=== PATIENT | male | born 1975 | race Caucasian/White ===

== ENCOUNTER 2019-11-01 12:03 | Inpatient (IN) | payer MEDICARE, OTHER ==
[~2019-11-01] VITALS: Ht 182.9 cm; Wt 136.4 kg
[2019-11-01] VITALS (19 sets, daily range): BP systolic 95–134; BP diastolic 42–89; Ht 182.9 cm; Wt 136.4 kg
[2019-11-01] MEDS ORDERED: TEGRETOL200 MG PO (12:24)
[2019-11-01] MEDS ORDERED: CLOZARIL100 MG PO (12:24)
[2019-11-01] MEDS ORDERED: INVEGA SUS78 MG/0.5 IM (12:25)
[2019-11-01] MEDS ORDERED: LASIX80 MG PO (12:25)
[2019-11-01] MEDS ORDERED: PROZAC20 MG PO (12:25)
[2019-11-01 12:26] LABS: BASOPHILS 0.3 % (0-2); EOSINOPHILS 0.5 % (0-7); HEMATOCRIT 41.2 % (42.0-54.0); HEMOGLOBIN 14.3 g/dL (13.5-17.5); IMMATURE GRANULOCYTES 0.4 % (0-5); LYMPHOCYTES 34.7 % (15-50); MCH 31.7 pg (26.0-34.0); MCHC 34.7 g/dL (31.0-37.0); MCV 91.4 fL (80.0-100.0); MEAN PLATELET VOLUME 9.1 fL (7.4-10.4); MONOCYTES 10.5 % (2-11); NEUTROPHILS 53.6 % (40-80); RBC 4.51 10x6/uL (4.20-6.10); RDW 13.4 % (11.5-14.5); WBC 11.5 10x3/uL (4.8-10.8)
[2019-11-01] MEDS ORDERED: PRAVACHOL40 MG PO (12:26)
[2019-11-01] MEDS ORDERED: TOPROL XL25 MG PO (12:26)
[2019-11-01] MEDS ORDERED: GLUCOPHAGE1000 MG PO (12:26)
[2019-11-01] MEDS ORDERED: TIMOPTIC 0.25% O5 M1 EACH EYE (12:26)
[2019-11-01] MEDS ORDERED: LISINOPRIL20 MG PO (12:26)
[2019-11-01] MEDS ORDERED: FENOFIBRATE160 MG PO (12:27)
[2019-11-01 12:31] LABS: PLATELET COUNT 297 10x3/uL (130-400)
[2019-11-01 12:35] LABS: CALC OSMOLALITY 279 mosm/kg (275-300); CALCIUM 9.2 mg/dL (8.5-10.1); CARBON DIOXIDE 27.5 mmol/L (21.0-32.0); CHLORIDE - SERUM 99 mmol/L (98-107); CREATININE - SERUM 1.1 mg/dL (0.6-1.3); SODIUM 135 mmol/L (136-145); UREA NITROGEN 24 mg/dL (7-18); eGFR NON AFRICAN AMERICAN 78 mL/min (90-120)
[2019-11-01 12:36] LABS: GLUCOSE 199 mg/dL (74-106)
[2019-11-01 12:37] LABS: POTASSIUM - SERUM 4.5 mmol/L (3.5-5.1)
[2019-11-01 12:45] LABS: APTT 28.4 SECONDS (22.8-39.4); INR 1.04 (0.85-1.17); PROTIME 13.1 SECONDS (11.6-15.0)
[2019-11-01 12:56] LABS: ALBUMIN 3.1 g/dL (3.4-5.0); ALKALINE PHOSPHATASE 47 U/L (46-116); ALT (SGPT) 23 U/L (10-68); BILIRUBIN - TOTAL 0.29 mg/dL (0.2-1.3); CREATINE KINASE 147 UL (21-232); MAGNESIUM - SERUM 1.4 mg/dL (1.8-2.4); PROTEIN - SERUM 6.9 g/dL (6.4-8.2); THYROID STIMULATING HORMONE 1.19 uIU/mL (0.36-3.74)
[2019-11-01 12:57] LABS: CARBAMAZEPINE (TEGRETOL) 6.2 ug/mL (4.0-12.0)
[2019-11-01 12:59] LABS: TROPONIN-I 0.541 ng/mL (0.000-0.060)
--- NOTE | 2019-11-01 14:28 | NUR ---
PT WAS GIVEN 5MG OF VERSED AT 1422 FOR CARDIOVERSION. TIMEOUT WAS PERFORMED AT 1420 AND SHOCK AT 100 JOULES WAS DELIVERED AT 1424 WITHOUT SUCCESS.
--- NOTE | 2019-11-01 14:45 | NUR ---
AMIODARONE 150 MG WAS MIXED IN 50 ML NS (SEE OVERRIDE MEDICATIONS) AND ADMINISTERED FROM [id number] AT REQUEST OF ER PROVIDER.
--- NOTE | 2019-11-01 15:45 | NUR ---
TIME OUT PERFORMED FOR SECOND ATTEMPT AT CARDIOVERSION AT 1530, VERSED 5MG ADMINISTERED (SSEE EMAR) AND SHOCK AT 200 JOULES ADMINISTERED BY ER PROVIDER AT 1534 WHICH WAS AGAIN UNSUCCESSFUL, PLEASE SEE PAPER CHARTING.
--- NOTE | 2019-11-01 15:49 | NUR ---
PT CONVERTED TO A SINUS RHYTHM AT 84 BPM, EKG PERFORMED AND ER PROVIDER NOTIFIED.
--- NOTE | 2019-11-01 16:08 | NUR ---
PT AGAIN SHOWING WIDE COMPLEX TACHYCARDIA AT RATE OF 188, ER PROVIDER NOTIFIED.
--- NOTE | 2019-11-01 16:42 | NUR ---
CONVERTED TO SINUS RHYTHM AT 85 BPM, EKG REPEATED AND ER PROVIDER NOTIFIED.
[2019-11-01 16:50] LABS: APPEARANCE CLEAR (CLEAR); BILIRUBIN NEGATIVE (NEGATIVE); COLOR STRAW (YELLOW); GLUCOSE NEGATIVE (NEGATIVE); KETONE NEGATIVE (NEGATIVE); NITRITE NEGATIVE (NEGATIVE); PROTEIN TRACE mg/dL (NEGATIVE); SPECIFIC GRAVITY 1.015 (1.005-1.020); UROBILINOGEN NORMAL (NORMAL)
--- NOTE | 2019-11-01 17:57 | NUR ---
patient arrived to unit. admission assessment completed. patient states sob but spo2 shows 98%. put on 2 l nc. lungs clear bilat. pulses palp. denies pain and needs. skin pink.
--- NOTE | 2019-11-01 18:31 | NUR ---
TRAY ORDERED FOR PATIENT
--- NOTE | 2019-11-01 19:00 | NUR ---
REPORT RECEIVED. RECEIVED PATIENT IN BED AWAKE ALERT ORIENTED X 4. SPEECH CLEAR. DENIES CHEST PAIN. HR 170S BP STABLE. ASSESSMENT COMPLETED PER FLOW SHEET. CALL LIGHT IN REACH AND ABLE TO UTILIZE TO MAKE NEEDS KNOWN.
[2019-11-01 20:19] LABS: UDS - AMPHET NEGATIVE QUAL (NEGATIVE); UDS - BARB NEGATIVE QUAL (NEGATIVE); UDS - BENZO POSITIVE QUAL (NEGATIVE); UDS - COCAINE NEGATIVE QUAL (NEGATIVE); UDS - OPIATE NEGATIVE QUAL (NEGATIVE); UDS - PCP NEGATIVE QUAL (NEGATIVE); UDS - THC NEGATIVE QUAL (NEGATIVE)
--- NOTE | 2019-11-01 20:35 | NUR ---
HR CONTINUES 170-180 DR. GONZALEZ PAGED AT THIS TIME
--- NOTE | 2019-11-01 20:45 | NUR ---
SPOKE WITH DR. GONZALEZ . INSTRUCTED TO BOLUS CARDIZEM 10MG IV AND CONTINUE TO MONITOR
--- NOTE | 2019-11-01 20:50 | NUR ---
CARDIZEM 10MG IV BOLUS ADMIN. BP STABLE. ANAHI WELL . NO CHANGE IN HRT RATE OR RHYTHMN
--- NOTE | 2019-11-01 21:55 | NUR ---
HT RATE CONTINUES 170-[address] GONZALEZ NEW ORDERS RECEIVED
--- NOTE | 2019-11-01 23:00 | NUR ---
REASSESSMENT COMPLETED AT THIS TIME. HR CONTINUES 170-180. BP STABLE CALL LIGHT IN REACH. WILL CONT POC.
[2019-11-02] VITALS (24 sets, daily range): BP systolic 112–171; BP diastolic 54–124
--- NOTE | 2019-11-02 01:00 | NUR ---
PATIENT AWAKE AND ALERT. DENIES CHEST PAIN. HR CONTINUES 180'S. BP STABLE. CALL LIGHT IN REACH.
[2019-11-02 01:53] LABS: CKMB 5.9 U/L (0.0-3.6); CREATINE KINASE 148 UL (21-232)
[2019-11-02 01:54] LABS: TROPONIN-I 0.712 ng/mL (0.000-0.060)
--- NOTE | 2019-11-02 03:00 | NUR ---
REASSESSEMENT COMPLETED WITH NO CHANGES OBSERVED. HR CONTINUES 180'S. AWAKE AND ALERT. BP STABLE.
--- NOTE | 2019-11-02 05:00 | NUR ---
AWAKE AND ALERT. CHG BATH GIVEN. LINENS CHANGED. PATIENT VOICED FEELING SOME BETTER AND STOPPED SWEATING. HR CONTINUES IN 180'S . BP STABLE. CALL LIGHT IN REACH
[2019-11-02 07:00] LABS: BASOPHILS 0.2 % (0-2); EOSINOPHILS 0.5 % (0-7); HEMATOCRIT 41.6 % (42.0-54.0); HEMOGLOBIN 14.5 g/dL (13.5-17.5); IMMATURE GRANULOCYTES 0.2 % (0-5); LYMPHOCYTES 30.5 % (15-50); MCH 31.9 pg (26.0-34.0); MCHC 34.9 g/dL (31.0-37.0); MCV 91.6 fL (80.0-100.0); MEAN PLATELET VOLUME 9.2 fL (7.4-10.4); MONOCYTES 9.3 % (2-11); NEUTROPHILS 59.3 % (40-80); PLATELET COUNT 276 10x3/uL (130-400); RBC 4.54 10x6/uL (4.20-6.10); RDW 13.7 % (11.5-14.5); WBC 13.3 10x3/uL (4.8-10.8)
[2019-11-02 07:28] LABS: APTT 32.8 SECONDS (22.8-39.4); INR 1.13 (0.85-1.17); PROTIME 13.9 SECONDS (11.6-15.0)
[2019-11-02 07:55] LABS: CALC OSMOLALITY 279 mosm/kg (275-300); CHLORIDE - SERUM 100 mmol/L (98-107); CKMB 6.8 U/L (0.0-3.6); CREATINE KINASE 137 UL (21-232); GLUCOSE 176 mg/dL (74-106); MAGNESIUM - SERUM 1.7 mg/dL (1.8-2.4); PHOSPHOROUS 4.2 mg/dL (2.5-4.9); POTASSIUM - SERUM 4.4 mmol/L (3.5-5.1); PRO BNP 4701 pg/mL (0-125); SODIUM 136 mmol/L (136-145); UREA NITROGEN 25 mg/dL (7-18); eGFR NON AFRICAN AMERICAN 87 mL/min (90-120)
[2019-11-02 07:56] LABS: TROPONIN-I 0.968 ng/mL (0.000-0.060)
[2019-11-02 10:34] LABS: T4 THYROXIN - FREE 1.21 ng/dL (0.76-1.46); THYROID STIMULATING HORMONE 1.69 uIU/mL (0.36-3.74)
--- NOTE | 2019-11-02 13:09 | MORECARE ---
CASE MANAGEMENT DISCHARGE SUMMARY PATIENT: DENISSE MARRERO UNIT: [id number] ADM DATE: 11/01/19 AGE: 44 : 77 SEX: M ROOM/BED: D.2303 AUTHOR: WEI RING PHYSICIAN: REFERRING PHYSICIAN: MIRTA WILD MD DATE OF SERVICE: 11/02/19 Discharge Plan Patient Name: DENISSE MARRERO [facility] [facility] 1975 Planned Disposition: Other Type of Facility Anticipated Discharge Date: 11/04/19 Discharge Date: Expected LOS: 3 Initial Reviewer: [email or web address] Initial Review Date: 11/01/2019 Generated: 11/02/19 2:08 pm Patient Name: DENISSE MARRERO Page 18674 at 1309 All edits/amendments must be made on the electronic document DICTATION DATE: 11/02/19 1308 RELAY OPERATOR: JUNE 11/02/19 1308 RPT#: [id number] DC DATE: STATUS: ADM IN [facility] [address] [place] [address] END OF REPORT
--- NOTE | 2019-11-02 13:16 | MORECARE ---
CASE MANAGEMENT DISCHARGE SUMMARY PATIENT: DENISSE MARRERO UNIT: [id number] ADM DATE: 11/01/19 AGE: 44 : 79 SEX: M ROOM/BED: D.2303 AUTHOR: JHONATHAN,DOC PHYSICIAN: REFERRING PHYSICIAN: MIRTA WILD MD DATE OF SERVICE: 11/02/19 Discharge Plan Patient Name: DENISSE MARRERO Facility: [facility]:[place] : 1975 Planned Disposition: Other Type of Facility Anticipated Discharge Date: 11/04/19 Discharge Date: Expected LOS: 3 Initial Reviewer: [email or web address] Initial Review Date: 11/01/2019 Generated: 11/02/19 2:16 pm DCP- Discharge Planning Updated by [email or web address]: Crystal Ramesh on 11/02/19 12:[address] DC PLAN: [facility] to [facility]. ANTICIPATED DC NEEDS: Denied known dc needs at time of assessment. CM met with patient to complete initial dc planning assessment. CM educated patient on the CM role and verbal consent given by patient to complete assessment. CM verified patient's address, phone number, and emergency contact phone numbers. Patient lives at [employer] [facility]. He reports he is independent in his care at home. At discharge patient plans to return to [facility] and feels this is a safe discharge. CM discussed availability of home health, rehab services, and medical equipment. Patient denied known discharge needs at this time. Transportation provider at discharge will be Brenda or a [employer] CM will continue to follow and will assist as needed with dc plans/needs. Crystal Ramesh RN, [facility] DCPIA - Discharge Planning Initial Assessment Updated by [email or web address]: Crystal Ramesh on 11/02/19 1:11 pm * Is the patient Alert and Oriented? Yes * How many steps to enter\exit or inside your home? None * PCP Dr. Gregory * Pharmacy [facility] * Preadmission Environment Longterm * Facility Name [facility] * ADLs Independent * Equipment None * List name and contact numbers for known caregivers / representatives who currently or will assist patient after discharge: Brenda S[facility] - [phone] * Verbal permission to speak to the caregivers and representatives has been obtained from the patient. Yes * Community resources currently utilized Other * Additional services required to return to the preadmission environment? No * Can the patient safely return to the preadmission environment? Yes * Has this patient been hospitalized within the prior 30 days at any hospital? No Last DP export: 11/02/19 12:09 p Patient Name: DENISSE MARRERO Page 08288 at 1316 All edits/amendments must be made on the electronic document DICTATION DATE: 11/02/191315 OUTSIDE SALES ASSOCIATE: JUNE 11/02/19 131 RPT#: [id number] DC DATE: STATUS: [facility] [address] [place] [address] END OF REPORT
--- NOTE | 2019-11-02 13:49 | NUR ---
0815-DR GONZALEZ NOTIFIED OF HEART RATE 192 WITH DECREASE IN NIBP TO 118/31-HRHDNRDWVDI-UILWIRNU AT 10MG-LIDOCAINE AT 1MG/H-MAG RIDER 1 G STARTED OF 2 GRAM TOTAL RETURN CALL -NOTIFIED ON ANETHESIST-SANDY TAPIA-OF CONSIOUS SEDATION FOR BEDSIDE CARDIO VERSION- 914-FICTION AND NONFICTION WRITER PROSE AT [facility]-DR GONZALEZ AT BEDSIDE-PROCEDURE EXPLAINED TO PT AND CONSENT OBTAINED-JEWELRY REMOVED AND PLACED IN CONTAINER-2 NECKLACES-I BRACELET-AND 1 WATCH-AND KEPT WITH PT BELONGING IN REQUESTED-STATED WILL PUT BACK ON 929-SEDATION OBTAINED-NIBP 122/68-CARDIOVERTED WITH 200J BY DR GONZALEZ-SR 83 0908-FICTION AND NONFICTION WRITER PROSE MONITORING PT POST SEDATION-NOTED RETURN TO [facility]TER 192-FOLLOW
[2019-11-02 14:49] LABS: CKMB 7.5 U/L (0.0-3.6); CREATINE KINASE 149 UL (21-232)
[2019-11-02 14:53] LABS: TROPONIN-I 1.109 ng/mL (0.000-0.060)
--- NOTE | 2019-11-02 17:46 | NUR ---
CARDIZEM GTT INCREASED TO 15MG-HR 210-NIBP 171SYS-PT IN NO APPARENT DISTRESS-DR YUN NOTIFIED -DIRECTED MAX ON CARDIZEM GTT 15MG-CORDARONE CONTINUE AT 1MG/MIN WITH NO DECREASE-TRANSFER CENTER CALLED TO CHECK STATUS OF TRANSFER TO HIGHER LEVEL OF CARE [facility] CCU-RETURN CALL-AND STATED ROOM NOT AVAILABLE AT THIS TIME-EXPECTING AVAILABILITY THIS PM-REPORT OF CURRENT STATUS GIVEN-PHARMACY STATED DO NOT CARRY CLOZARIL-PT TO USE HOME MED-CALLED RESIDENTIAL FACILITY TO OBTAIN-NO ANSWER-NO ANSWERING MESSAGE SERVICE
--- NOTE | 2019-11-02 19:00 | NUR ---
REPORT RECEIVED. RECEIVED PATIENT UP IN CHAIR. AWAKE ALERT AND ORIENTED X 4. ASSESSMENT COMPLETED PER FLOW SHEET. MONITORS CONNECTED TO PATIENT WITH ALARMS SET. BP STABLE HR CONTINUES 190'S. CALL LIGHT IN REACH AND ABLE TO UTILIZE TO MAKE NEEDS KNOWN
--- NOTE | 2019-11-02 19:57 | NUR ---
PHONE CALL PLACED TO [facility] WITH NO ANSWER
--- NOTE | 2019-11-02 21:00 | NUR ---
AWAKE AND ALERT. BP STABLE. CALL LIGHT IN REACH
--- NOTE | 2019-11-02 22:35 | NUR ---
REPORT CALLED TO ANSHU HUDSON @ [facility].
--- NOTE | 2019-11-02 23:00 | NUR ---
REASSESSMENT COMPLETED PER FLOW SHEET WITH NO CHANGES OBSERVED. HR CONTINUES 190-200. BP STABLE. CALL LIGHT IN REACH
--- NOTE | 2019-11-02 23:22 | NUR ---
[facility] CALLED FOR TRANSFER
--- NOTE | 2019-11-02 23:40 | NUR ---
PATIENT UPDATED ON TRANSFER PROCEEDINGS,QUESTIONS ANSWERED VERBALIZED UNDERSTANDING.
[2019-11-03] VITALS: BP 143/77
--- NOTE | 2019-11-03 01:35 | NUR ---
PT LEFT WITH EMS STAFF X 2 VIA STRETCHER, IN NO APPARENT DISTRESS.
--- NOTE | 2019-11-04 12:40 | MORECARE ---
CASE MANAGEMENT DISCHARGE SUMMARY PATIENT: DENISSE MARRERO UNIT: [id number] ADM DATE: 11/01/19 AGE: 44 : 79 SEX: M ROOM/BED: D.2303 AUTHOR: JHONATHAN,DOC PHYSICIAN: REFERRING PHYSICIAN: MIRTA WILD MD DATE OF SERVICE: 11/04/19 Discharge Plan Patient Name: DENISSE MARRERO Facility: [facility]:[place] : 1975 Planned Disposition: Other Type of Facility Anticipated Discharge Date: 11/04/19 Discharge Date: 11/03/2019 Expected LOS: 3 Initial Reviewer: [email or web address] Initial Review Date: 11/01/2019 Generated: 11/04/19 1:39 pm DCP- Discharge Planning Updated by [email or web address]: Crystal Ramesh on 11/02/19 12:[address] DC PLAN: [facility] to [facility]. ANTICIPATED DC NEEDS: Denied known dc needs at time of assessment. CM met with patient to complete initial dc planning assessment. CM educated patient on the CM role and verbal consent given by patient to complete assessment. CM verified patient's address, phone number, and emergency contact phone numbers. Patient lives at [employer] [facility] [employer]. He reports he is independent in his care at home. At discharge patient plans to return to [facility] group therapy and feels this is a safe discharge. CM discussed availability of home health, rehab services, and medical equipment. Patient denied known discharge needs at this time. Transportation provider at discharge will be Brenda or a [employer]. CM will continue to follow and will assist as needed with dc plans/needs. Crystal Ramesh RN, [facility] DCPIA - Discharge Planning Initial Assessment Updated by [email or web address]: Crystal Ramesh on 11/02/19 1:11 pm * Is the patient Alert and Oriented? Yes * How many steps to enter\exit or inside your home? None * PCP Dr. Gregory * Pharmacy [facility] * Preadmission Environment Correction * Facility Name [facility] * ADLs Independent * Equipment None * List name and contact numbers for known caregivers / representatives who currently or will assist patient after discharge: Brenda Saeed [facility] - [phone] * Verbal permission to speak to the caregivers and representatives has been obtained from the patient. Yes * Community resources currently utilized Other * Additional services required to return to the preadmission environment? No * Can the patient safely return to the preadmission environment? Yes * Has this patient been hospitalized within the prior 30 days at any hospital? No Last DP export: 11/02/19 12:16 p Patient Name: DENISSE MARRERO Page 89031 at 1240 All edits/amendments must be made on the electronic document DICTATION DATE: 11/04/19 1239 TAX PROCESSOR: JUNE 11/04/19 1239 RPT#: [id number] DC DATE:11/03/19 STATUS: DIS IN [facility] [address] [place] [address] END OF REPORT
== END 2019-11-03 01:37 | disposition short-term general hospital (02) | DRG 308 ==
LOC: D.ER 12:03 → D.ICU 15:53
PROVIDERS: Emergency Medicine; ADMIT Internal Medicine Nephrology; ATTEND Internal Medicine Nephrology
DX: I47.1 Supraventricular tachycardia (principal); J96.01 Acute respiratory failure with hypoxia; E87.1 Hypo-osmolality and hyponatremia; Z68.41 Body mass index [BMI] 40.0-44.9, adult; E83.42 Hypomagnesemia; I11.0 Hypertensive heart disease with heart failure; I50.9 Heart failure, unspecified; E11.65 Type 2 diabetes mellitus with hyperglycemia; E66.01 Morbid (severe) obesity due to excess calories; E78.5 Hyperlipidemia, unspecified; F31.9 Bipolar disorder, unspecified; F41.8 Other specified anxiety disorders

== ENCOUNTER 2020-04-20 09:10 | Inpatient (IN) | payer MEDICARE, OTHER ==
[~2020-04-20] VITALS: Ht 182.9 cm; Wt 128.8 kg
[~2020-04-20 09:10] MED LIST: CLOZARIL100 MG PO; FENOFIBRATE160 MG PO; GLUCOPHAGE1000 MG PO; INVEGA SUS78 MG/0.5 IM; LASIX80 MG PO; LISINOPRIL20 MG PO; PRAVACHOL40 MG PO; PROZAC20 MG PO; TEGRETOL200 MG PO; TIMOPTIC 0.25% O5 M1 EACH EYE; TOPROL XL25 MG PO
--- NOTE | 2020-04-20 09:14 | NUR ---
HE IS EATING BREAKFAST. DENIES ANY PAIN. WEARING 2 LITERS OF 02 PER NC. NO SOB. THE CALL LIGHT IS [employer], HIS IS AT THE BEDSIDE.
[2020-04-20] MEDS ORDERED: TEGRETOL200 MG PO (09:30)
[2020-04-20] MEDS ORDERED: PACERONE200 MG PO (09:31)
[2020-04-20] MEDS ORDERED: LANOXIN125 MCG PO (09:32)
[2020-04-20] MEDS ORDERED: CARDIZEM CD180 MG PO (09:32)
[2020-04-20] MEDS ORDERED: ELIQUIS5 MG PO (09:33)
[2020-04-20] MEDS ORDERED: HUMALOG MIX 75/10 ML SC (09:34)
[2020-04-20] MEDS ORDERED: KEPPRA750 MG PO (09:35)
[2020-04-20] MEDS ORDERED: KLOR-CON/EF 2525 MEQ PO (09:36)
[2020-04-20] MEDS ORDERED: METOLAZONE5 MG PO (09:36)
[2020-04-20] MEDS ORDERED: LIPITOR10 MG PO (09:36)
[2020-04-20] MEDS ORDERED: PROTONIX20 MG PO (09:36)
[2020-04-20] MEDS ORDERED: INVEGA SUS78 MG/0.5 IM (09:37)
[2020-04-20] MEDS ORDERED: FUROSEMIDE20 MG PO (09:37)
[2020-04-20 09:49] LABS: BASOPHILS 0.3 % (0-2); HEMATOCRIT 36.1 % (42.0-54.0); HEMOGLOBIN 12.1 g/dL (13.5-17.5); IMMATURE GRANULOCYTES 0.4 % (0-5); MCH 28.9 pg (26.0-34.0); MCHC 33.5 g/dL (31.0-37.0); MCV 86.2 fL (80.0-100.0); MEAN PLATELET VOLUME 8.6 fL (7.4-10.4); MONOCYTES 9.3 % (2-11); PLATELET COUNT 310 10x3/uL (130-400); RBC 4.19 10x6/uL (4.20-6.10); RDW 15.9 % (11.5-14.5)
[2020-04-20 09:54] LABS: BILIRUBIN NEGATIVE (NEGATIVE); GLUCOSE NEGATIVE (NEGATIVE); KETONE NEGATIVE (NEGATIVE); NITRITE NEGATIVE (NEGATIVE); UROBILINOGEN NORMAL (NORMAL)
[2020-04-20 09:57] LABS: ANION GAP 12.4 mmol/L (8-16); CALCIUM 8.9 mg/dL (8.5-10.1); CREATININE - SERUM 1.3 mg/dL (0.6-1.3); POTASSIUM - SERUM 3.4 mmol/L (3.5-5.1)
[2020-04-20 10:02] LABS: ALBUMIN 3.7 g/dL (3.4-5.0); BILIRUBIN - TOTAL 0.39 mg/dL (0.2-1.3); PROTEIN - SERUM 7.5 g/dL (6.4-8.2)
[2020-04-20 11:14] VITALS: BP 112/39
[2020-04-20 11:26] LABS: C-REACTIVE PROTEIN 3.5 mg/dL (0.0-0.9); CKMB 1.2 U/L (0.0-3.6); CREATINE KINASE 64 UL (21-232); FERRITIN 62 ng/mL (3-244); PRO BNP 2339 pg/mL (0-125); TROPONIN-I 0.017 ng/mL (0.000-0.060)
[2020-04-20 12:14] VITALS: BP 111/42
[2020-04-20 13:04] VITALS: BP 143/59; BMI 38.6
[2020-04-20 17:10] VITALS: BP 147/58
--- NOTE | 2020-04-20 19:00 | NUR ---
BEDSIDE REPORT RECEIVED AND CARE OF PT ASSUMED. PT LYING IN HIGH MATIAS'S POSITION WATCHING TV. IV TO LEFT WRIST PATENT WITH NS INFUSING AT 100 ML/HR. O2 IN USE VIA NC AT 3L. WILL MONITOR FOR NEEDS.
[2020-04-20 20:37] VITALS: BP 134/56
--- NOTE | 2020-04-20 20:45 | NUR ---
GAVE TURKEY SANDWICH TRAY PER REQUEST FOR SNACK.
--- NOTE | 2020-04-20 20:58 | NUR ---
HS MEDICATIONS GIVEN. WILL CONTINUE TO MONITOR FOR NEEDS.
[2020-04-21 00:50] VITALS: BP 134/53
[2020-04-21 06:48] VITALS: BP 141/62
[2020-04-21 07:09] LABS: BASOPHILS 0.2 % (0-2); EOSINOPHILS 1.6 % (0-7); HEMATOCRIT 34.2 % (42.0-54.0); HEMOGLOBIN 11.3 g/dL (13.5-17.5); IMMATURE GRANULOCYTES 0.4 % (0-5); LYMPHOCYTES 24.1 % (15-50); MCH 28.5 pg (26.0-34.0); MCV 86.1 fL (80.0-100.0); MEAN PLATELET VOLUME 8.9 fL (7.4-10.4); MONOCYTES 10.2 % (2-11); NEUTROPHILS 63.5 % (40-80); PLATELET COUNT 298 10x3/uL (130-400); RBC 3.97 10x6/uL (4.20-6.10); RDW 15.7 % (11.5-14.5); WBC 8.3 10x3/uL (4.8-10.8)
[2020-04-21 07:36] LABS: ALBUMIN 3.3 g/dL (3.4-5.0); ALKALINE PHOSPHATASE 40 U/L (30-120); ALT (SGPT) 19 U/L (10-68); BILIRUBIN - TOTAL 0.32 mg/dL (0.2-1.3); CALC OSMOLALITY 261 mosm/kg (275-300); CALCIUM 8.5 mg/dL (8.5-10.1); CARBON DIOXIDE 29.3 mmol/L (21.0-32.0); CHLORIDE - SERUM 93 mmol/L (98-107); GLUCOSE 124 mg/dL (74-106); POTASSIUM - SERUM 3.1 mmol/L (3.5-5.1); PRO BNP 2049 pg/mL (0-125); PROTEIN - SERUM 6.6 g/dL (6.4-8.2); SODIUM 130 mmol/L (136-145); UREA NITROGEN 13 mg/dL (7-18)
[2020-04-21 07:41] LABS: CREATININE - SERUM 0.9 mg/dL (0.6-1.3); eGFR NON AFRICAN AMERICAN > 90 mL/min (90-120)
--- NOTE | 2020-04-21 08:53 | NUR ---
HE IS ALERT, TALKING, ATE BREAKFAST ALREADY. DENIES ANY PAIN. WEARING 3 LITERS NC.
[2020-04-21 09:47] VITALS: BP 145/60
[2020-04-21 10:14] VITALS: Ht 182.9 cm; Wt 128.8 kg
[2020-04-21 12:14] VITALS: BP 121/46
[2020-04-21] MEDS ORDERED: CLOZARIL100 MG PO (16:11)
[2020-04-21 16:45] VITALS: BP 123/54
[2020-04-21 20:57] VITALS: BP 141/57
[2020-04-22 01:00] VITALS: BP 135/52
[2020-04-22 05:00] LABS: BASOPHILS 0.4 % (0-2); EOSINOPHILS 2.2 % (0-7); HEMATOCRIT 33.1 % (42.0-54.0); IMMATURE GRANULOCYTES 0.4 % (0-5); LYMPHOCYTES 23.4 % (15-50); MCH 28.6 pg (26.0-34.0); MCHC 33.2 g/dL (31.0-37.0); MCV 86.2 fL (80.0-100.0); MEAN PLATELET VOLUME 8.8 fL (7.4-10.4); NEUTROPHILS 62.6 % (40-80); PLATELET COUNT 289 10x3/uL (130-400); RBC 3.84 10x6/uL (4.20-6.10); RDW 15.9 % (11.5-14.5); WBC 7.7 10x3/uL (4.8-10.8)
[2020-04-22 05:31] LABS: CALC OSMOLALITY 259 mosm/kg (275-300); CALCIUM 8.9 mg/dL (8.5-10.1); CARBON DIOXIDE 29.9 mmol/L (21.0-32.0); CHLORIDE - SERUM 94 mmol/L (98-107); CREATININE - SERUM 0.8 mg/dL (0.6-1.3); GLUCOSE 117 mg/dL (74-106); POTASSIUM - SERUM 3.4 mmol/L (3.5-5.1); SODIUM 130 mmol/L (136-145); eGFR NON AFRICAN AMERICAN > 90 mL/min (90-120)
[2020-04-22 05:35] LABS: UREA NITROGEN 7 mg/dL (7-18)
[2020-04-22 06:30] VITALS: BP 117/51
--- NOTE | 2020-04-22 07:45 | NUR ---
REPORT RECIEVED. PATIENT AWAKENED. SOME DROOL ON FRONT OF SHIRT HE STATES IS NORMAL. CL IN REACH. NO NEEDS AT THIS TIME. WCTM
[2020-04-22 08:45] VITALS: BP 122/45
--- NOTE | 2020-04-22 11:45 | NUR ---
PATIENT AWAKE AND ALERT. REQUESTED AND RECIEVED COFFEE. NO FURTHER NEEDS AT THIS TIME. WCTM.
--- NOTE | 2020-04-22 13:23 | MORECARE ---
CASE MANAGEMENT DISCHARGE SUMMARY PATIENT: DENISSE MARRERO UNIT: [id number] ADM DATE: 04/20/20 AGE: 45 : 79 SEX: M ROOM/BED: D.2203 AUTHOR: WEI RING PHYSICIAN: REFERRING PHYSICIAN: MALCOLM EASLEY MD DATE OF SERVICE: 04/22/20 Discharge Plan Patient Name: DENISSE MARRERO [facility] [facility] 1975 Planned Disposition: Assisted Living Anticipated Discharge Date: Discharge Date: Expected LOS: Initial Reviewer: [email or web address] Initial Review Date: 04/20/2020 Generated: 04/22/20 2:22 pm Patient Name: DENISSE MARRERO Page 12275 at 1323 All edits/amendments must be made on the electronic document DICTATION DATE: 04/22/20 1322 OFFICE ASSISTANT RECEPTIONIST: JUNE 04/22/20 1322 RPT#: [id number] DC DATE: STATUS: ADM IN [facility] [address] [place] [address] END OF REPORT
[2020-04-22 13:28] VITALS: BP 133/57
--- NOTE | 2020-04-22 15:27 | MORECARE ---
CASE MANAGEMENT DISCHARGE SUMMARY PATIENT: DENISSE MARRERO UNIT: [id number] ADM DATE: 04/20/20 AGE: 45 : 79 SEX: M ROOM/BED: D.2203 AUTHOR: JHONATHANDOC PHYSICIAN: REFERRING PHYSICIAN: MALCOLM EASLEY MD DATE OF SERVICE: 04/22/20 Discharge Plan Patient Name: DENISSE MARRERO Facility: [facility]:[place] : 1975 Planned Disposition: Assisted Living Anticipated Discharge Date: Discharge Date: Expected LOS: Initial Reviewer: [email or web address] Initial Review Date: 04/20/2020 Generated: 04/22/20 4:27 pm Comments DCP- Discharge Planning Updated by [id number]: Rola Persaud on 04/22/20 2:[address] Patient Name: DENISSE MARRERO Admission Status: ER Accout number: [id number] Admission Date: 04-20-2020 : 1975 Admission Diagnosis:PNEUMONIA, UNSPECIFIED ORGANISM Attending: MALCOLM EASLEY Current LOS: 2 Anticipated DC Date: Planned Disposition: Assisted Living Primary Insurance: MEDICARE A & B Discharge Planning Comments: CM met with patient to complete initial dc planning assessment. CM educated patient on the CM role and verbal consent given by patient to complete assessment. Patient lives at [address] [place] [address], but is currently staying at [facility] for a [facility] (R[facility]) for 2 weeks. Then the patient will return home. CM discussed availability of home health, rehab services, and medical equipment. He does not use any DME, but he is current with [facility]. He stated that I could call Vicky Franz at [phone] if I had any questions. IMM explained and signed, PATY for [facility] RIN[facility] signed and placed in chart. 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 Patient denied known discharge needs at this time. CM will continue to follow and will assist as needed with dc plans/needs. Director Supplier Quality: Rola Persaud DCPIA - Discharge Planning Initial Assessment Updated by [email or web address]: Rola Persaud on 04/22/20 3:16 pm * Is the patient Alert and Oriented? Yes * How many steps to enter\exit or inside your home? * PCP [facility] * Pharmacy U[facility] * Preadmission Environment Half-Way * Facility Name [facility] ([facility]ARE) * ADLs Partial Dependent * Partial ADLs (Assistance needed) Medication Management * Equipment None * List name and contact numbers for known caregivers / representatives who currently or will assist patient after discharge: VICKY JOSE [phone] * Verbal permission to speak to the caregivers and representatives has been obtained from the patient. Yes * Community resources currently utilized Other * Please name any agencies selected above. [facility] * Additional services required to return to the preadmission environment? No * Can the patient safely return to the preadmission environment? Yes * Has this patient been hospitalized within the prior 30 days at any hospital? No Coverage Notice Reviewer: [id number] Darshana Persaud Notice Issued Date-Time: 04/22/2020 13:10 Notice Type: IM Discharge Notice Notice Delivered To: Patient Relationship to Patient: Training Lead Name: Delivery Method: HAND - Hand Delivered Vane Days: Prior Verbal Notification: Recipient Understood Notice: Yes Recipient Signature: Yes Med Rec Note Co-signed by Attending: Coverage Notice Comment: imm served and explained Reviewer: [id number] Darshana Persaud Notice Issued Date-Time: 04/22/2020 13:10 Notice Type: Patient Choice Letter Notice Delivered To: Patient Relationship to Patient: Training Lead Name: Delivery Method: HAND - Hand Delivered Vane Days: Prior Verbal Notification: Recipient Understood Notice: Yes Recipient Signature: Yes Med Rec Note Co-signed by Attending: Coverage Notice Comment: [facility] Last DP export: 04/22/20 12:22 p Patient Name: DENISSE MARRERO Page [phone] at 1527 All edits/amendments must be made on the electronic document DICTATION DATE: 04/22/20 152 TREE AND SHRUB TECHNICIAN: JUNE 04/22/201526 RPT#: [id number] [place] DATE: STATUS: ADM IN [facility] [address] [place] [address] END OF REPORT
[2020-04-22 17:14] VITALS: BP 130/48
--- NOTE | 2020-04-22 18:00 | NUR ---
PATIENT REQUESTED AND RECIEVED COFFEE. CL IN REACH. NO FURTHER NEEDS AT THIS TIME. WCTM
--- NOTE | 2020-04-22 19:30 | NUR ---
PT UP IN CHAIR, AAO X 3, RESP EVEN AND UNLABORED. NO DISTRESS NOTED, CL IN REACH, SR UP X 2.
[2020-04-22 21:33] VITALS: BP 136/52
[2020-04-23 01:11] VITALS: BP 130/52
--- NOTE | 2020-04-23 01:29 | NUR ---
I have reviewed this patient and I concur with the Shift Assessment completed by the Licensed Practical Nurse today this shift.
[2020-04-23 05:13] LABS: BASOPHILS 0.3 % (0-2); HEMATOCRIT 33.9 % (42.0-54.0); HEMOGLOBIN 11.1 g/dL (13.5-17.5); IMMATURE GRANULOCYTES 0.5 % (0-5); LYMPHOCYTES 23.4 % (15-50); MCH 28.6 pg (26.0-34.0); MCHC 32.7 g/dL (31.0-37.0); MCV 87.4 fL (80.0-100.0); MEAN PLATELET VOLUME 8.8 fL (7.4-10.4); MONOCYTES 10.2 % (2-11); NEUTROPHILS 62.6 % (40-80); PLATELET COUNT 303 10x3/uL (130-400); RBC 3.88 10x6/uL (4.20-6.10); RDW 16.2 % (11.5-14.5); WBC 7.9 10x3/uL (4.8-10.8)
[2020-04-23 05:22] LABS: CALC OSMOLALITY 264 mosm/kg (275-300); CALCIUM 9.3 mg/dL (8.5-10.1); CARBON DIOXIDE 29.4 mmol/L (21.0-32.0); CHLORIDE - SERUM 95 mmol/L (98-107); CREATININE - SERUM 1.1 mg/dL (0.6-1.3); GLUCOSE 141 mg/dL (74-106); MAGNESIUM - SERUM 1.7 mg/dL (1.8-2.4); POTASSIUM - SERUM 3.6 mmol/L (3.5-5.1); SODIUM 131 mmol/L (136-145); UREA NITROGEN 13 mg/dL (7-18); eGFR NON AFRICAN AMERICAN 78 mL/min (90-120)
[2020-04-23 06:49] VITALS: BP 115/46
[2020-04-23 09:07] VITALS: BP 130/54
[2020-04-23 13:45] VITALS: BP 113/46
[2020-04-23 17:56] VITALS: BP 115/45
[2020-04-23 20:00] VITALS: BP 118/53
[2020-04-24] VITALS: BP 106/55
[2020-04-24 04:00] VITALS: BP 131/53
[2020-04-24 06:51] LABS: BASOPHILS 0.4 % (0-2); EOSINOPHILS 3.2 % (0-7); HEMATOCRIT 32.6 % (42.0-54.0); HEMOGLOBIN 10.5 g/dL (13.5-17.5); IMMATURE GRANULOCYTES 0.4 % (0-5); LYMPHOCYTES 26.3 % (15-50); MCH 28.5 pg (26.0-34.0); MCHC 32.2 g/dL (31.0-37.0); MCV 88.3 fL (80.0-100.0); MEAN PLATELET VOLUME 9.1 fL (7.4-10.4); MONOCYTES 10.7 % (2-11); PLATELET COUNT 301 10x3/uL (130-400); RBC 3.69 10x6/uL (4.20-6.10); RDW 16.5 % (11.5-14.5); WBC 8.5 10x3/uL (4.8-10.8)
[2020-04-24 06:58] LABS: CALC OSMOLALITY 263 mosm/kg (275-300); CALCIUM 8.8 mg/dL (8.5-10.1); CARBON DIOXIDE 28.5 mmol/L (21.0-32.0); CHLORIDE - SERUM 94 mmol/L (98-107); GLUCOSE 130 mg/dL (74-106); MAGNESIUM - SERUM 1.6 mg/dL (1.8-2.4); SODIUM 130 mmol/L (136-145); UREA NITROGEN 15 mg/dL (7-18); eGFR NON AFRICAN AMERICAN 87 mL/min (90-120)
[2020-04-24 15:13] VITALS: BP 140/52
[2020-04-24 15:27] VITALS: BP 117/49
[2020-04-24 18:43] VITALS: BP 142/52
--- NOTE | 2020-04-24 18:52 | NUR ---
I have reviewed this patient and I concur with the Shift Assessment completed by the Licensed Practical Nurse today this shift.
[2020-04-24 20:00] VITALS: BP 141/53
[2020-04-25] VITALS: BP 143/58
--- NOTE | 2020-04-25 00:06 | NUR ---
ASSESSED AT THE BEGINNING OF THE SHIFT. PT IS ALERT AND ORIENTED AND HAS BEEN STAYING IN HIS CHAIR ALOT WATCHING TV OR SLEEPING. HIS BLOOD SUGAR WAS GOOD AND HE DID NOT NEED ANY INSULIN.
[2020-04-25 04:00] VITALS: BP 124/53
[2020-04-25 06:42] LABS: BASOPHILS 0.2 % (0-2); EOSINOPHILS 2.7 % (0-7); HEMATOCRIT 33.1 % (42.0-54.0); HEMOGLOBIN 10.6 g/dL (13.5-17.5); IMMATURE GRANULOCYTES 0.5 % (0-5); LYMPHOCYTES 25.1 % (15-50); MCH 28.1 pg (26.0-34.0); MCV 87.8 fL (80.0-100.0); MEAN PLATELET VOLUME 8.7 fL (7.4-10.4); MONOCYTES 8.2 % (2-11); NEUTROPHILS 63.3 % (40-80); PLATELET COUNT 291 10x3/uL (130-400); RBC 3.77 10x6/uL (4.20-6.10); RDW 16.2 % (11.5-14.5)
[2020-04-25 07:05] LABS: CALC OSMOLALITY 255 mosm/kg (275-300); CALCIUM 9.2 mg/dL (8.5-10.1); CARBON DIOXIDE 27.7 mmol/L (21.0-32.0); CHLORIDE - SERUM 93 mmol/L (98-107); GLUCOSE 123 mg/dL (74-106); MAGNESIUM - SERUM 1.8 mg/dL (1.8-2.4); POTASSIUM - SERUM 4.2 mmol/L (3.5-5.1); SODIUM 127 mmol/L (136-145); UREA NITROGEN 13 mg/dL (7-18); eGFR NON AFRICAN AMERICAN 87 mL/min (90-120)
[2020-04-25 08:41] VITALS: BP 111/57
[2020-04-25 16:15] VITALS: BP 121/64
--- NOTE | 2020-04-25 18:23 | NUR ---
I have reviewed this patient and I concur with the Shift Assessment completed by the Licensed Practical Nurse today this shift.
[2020-04-25 20:00] VITALS: BP 134/56
--- NOTE | 2020-04-25 20:05 | NUR ---
PATIENT SITTING UP IN CHAIR AND DENIES NEEDS AT THIS TIME. ENCOURAGED THE PATIENT TO CALL IF HE HAS NEEDS. WILL CONTINUE TO MONITOR.
--- NOTE | 2020-04-25 21:41 | NUR ---
ADMINISTERED MEDS PER ORDERS. PATIENT DENIES OTHER NEEDS AT THIS TIME. WILL CONTINUE TO MONITOR.
[2020-04-26] VITALS: BP 123/52
[2020-04-26 04:00] VITALS: BP 123/48
[2020-04-26 06:26] LABS: BASOPHILS 0.3 % (0-2); EOSINOPHILS 2.7 % (0-7); HEMATOCRIT 32.9 % (42.0-54.0); HEMOGLOBIN 10.9 g/dL (13.5-17.5); IMMATURE GRANULOCYTES 0.3 % (0-5); LYMPHOCYTES 26.9 % (15-50); MCH 29.1 pg (26.0-34.0); MCHC 33.1 g/dL (31.0-37.0); MCV 87.7 fL (80.0-100.0); MONOCYTES 9.2 % (2-11); NEUTROPHILS 60.6 % (40-80); PLATELET COUNT 283 10x3/uL (130-400); RBC 3.75 10x6/uL (4.20-6.10); WBC 7.2 10x3/uL (4.8-10.8)
[2020-04-26 06:51] LABS: CALC OSMOLALITY 258 mosm/kg (275-300); CARBON DIOXIDE 27.9 mmol/L (21.0-32.0); CHLORIDE - SERUM 92 mmol/L (98-107); CREATININE - SERUM 0.9 mg/dL (0.6-1.3); GLUCOSE 121 mg/dL (74-106); MAGNESIUM - SERUM 1.7 mg/dL (1.8-2.4); POTASSIUM - SERUM 4.1 mmol/L (3.5-5.1); SODIUM 128 mmol/L (136-145); UREA NITROGEN 14 mg/dL (7-18); eGFR NON AFRICAN AMERICAN > 90 mL/min (90-120)
[2020-04-26 08:10] VITALS: BP 124/45
--- NOTE | 2020-04-26 09:33 | NUR ---
UP IN CHAIR, SLEEPING, NO DISTRESS NOTED, O2 PER NC AT 2L, CONT TO MONITOR
[2020-04-26 12:19] VITALS: BP 130/54
--- NOTE | 2020-04-26 15:04 | NUR ---
IV INFILTRATED, PT REFUSED TO BE STUCK AGAIN, DR GARLAND, MAY LEAVE OUT
[2020-04-26 16:44] VITALS: BP 128/50
[2020-04-26 20:00] VITALS: BP 122/50
[2020-04-27] VITALS: BP 121/46
[2020-04-27 04:00] VITALS: BP 135/52
[2020-04-27 04:14] LABS: CALC OSMOLALITY 257 mosm/kg (275-300); CARBON DIOXIDE 30.2 mmol/L (21.0-32.0); CHLORIDE - SERUM 92 mmol/L (98-107); CREATININE - SERUM 0.9 mg/dL (0.6-1.3); GLUCOSE 118 mg/dL (74-106); MAGNESIUM - SERUM 1.6 mg/dL (1.8-2.4); POTASSIUM - SERUM 3.8 mmol/L (3.5-5.1); SODIUM 128 mmol/L (136-145); UREA NITROGEN 13 mg/dL (7-18); eGFR NON AFRICAN AMERICAN > 90 mL/min (90-120)
[2020-04-27 08:18] VITALS: BP 119/40
[2020-04-27] MEDS ORDERED: MAG-OX 400 MG400 MG PO (08:24)
--- NOTE | 2020-04-27 12:33 | MORECARE ---
CASE MANAGEMENT DISCHARGE SUMMARY PATIENT: DENISSE MARRERO UNIT: [id number] ADM DATE: 04/20/20 AGE: 45 : 79 SEX: M ROOM/BED: D.2203 AUTHOR: JHONATHAN,DOC PHYSICIAN: REFERRING PHYSICIAN: MALCOLM EASLEY MD DATE OF SERVICE: 04/27/20 Discharge Plan Patient Name: DENISSE MARRERO Facility: [facility]:[place] : 1975 Planned Disposition: Assisted Living Anticipated Discharge Date: Discharge Date: Expected LOS: Initial Reviewer: [email or web address] Initial Review Date: 04/20/2020 Generated: 04/27/20 1:32 pm Comments DCP- Discharge Planning Updated by [email or web address]: Rola Persaud on 04/27/20 11:[address] spoke with Vicky Garcia to let her know of DC, I will send clinical to her. ANDRIA served and explained. I will also let roscoe FRAGOSO know and send them dc paperwork. Vicky will send someone to pick him up. Christy will call report to Vicky. DCP- Discharge Planning Updated by [id number]: Rola Persaud on 04/22/20 2:[address] Patient Name: DENISSE MARRERO Admission Status: ER Accout number: [id number] Admission Date: 04-20-2020 : 1975 Admission Diagnosis:PNEUMONIA, UNSPECIFIED ORGANISM Attending: MALCOLM EASLEY Current LOS: 2 Anticipated DC Date: Planned Disposition: Assisted Living Primary Insurance: MEDICARE A & B Discharge Planning Comments: CM met with patient to complete initial dc planning assessment. CM educated patient on the CM role and verbal consent given by patient to complete assessment. Patient lives at [address] [place] [address], but is currently staying at [facility] for a transition home (RC) for 2 weeks. Then the patient will return home. CM discussed availability of home health, rehab services, and medical equipment. He does not use any DME, but he is current with [facility]. He stated that I could call Vicky Franz at [phone] if I had any questions. IMM explained and signed, PATY for [facility] FRAG[facility] signed and placed in chart. Kailyn will be his ambulance driver paramedic home. Patient denied known discharge needs at this time. CM will continue to follow and will assist as needed with dc plans/needs. Gut Puller: Rola Persaud DCPIA - Discharge Planning Initial Assessment Updated by [email or web address]: Rola Persaud on 04/22/20 3:16 pm * Is the patient Alert and Oriented? Yes * How many steps to enter\exit or inside your home? * PCP [facility] * Pharmacy U[facility] * Preadmission Environment Long Term * Facility Name [facility] (TRANSISTION CARE) * ADLs Partial Dependent * Partial ADLs (Assistance needed) Medication Management * Equipment None * List name and contact numbers for known caregivers / representatives who currently or will assist patient after discharge: VICKY GARCIA [phone] * Verbal permission to speak to the caregivers and representatives has been obtained from the patient. Yes * Community resources currently utilized Other * Please name any agencies selected above. [facility] * Additional services required to return to the preadmission environment? No * Can the patient safely return to the preadmission environment? Yes * Has this patient been hospitalized within the prior 30 days at any hospital? No External Providers External Provider: OTHER-OTHER Next Contact Date: Service Request Date: Service Type: Resolution: Reviewer: Comments: External Provider: [facility] Next Contact Date: Service Request Date: Service Type: Resolution: Reviewer: Comments: Coverage Notice Reviewer: [id number] Darshana Persaud Notice Issued Date-Time: 04/22/2020 13:10 Notice Type: IM Discharge Notice Notice Delivered To: Patient Relationship to Patient: Log Cut Off Sawyer Name: Delivery Method: HAND - Hand Delivered Vane Days: Prior Verbal Notification: Recipient Understood Notice: Yes Recipient Signature: Yes Med Rec Note Co-signed by Attending: Coverage Notice Comment: imm served and explained Reviewer: [id number] Darshana Persaud Notice Issued Date-Time: 04/22/2020 13:10 Notice Type: Patient Choice Letter Notice Delivered To: Patient Relationship to Patient: Log Cut Off Sawyer Name: Delivery Method: HAND - Hand Delivered Vane Days: Prior Verbal Notification: Recipient Understood Notice: Yes Recipient Signature: Yes Med Rec Note Co-signed by Attending: Coverage Notice Comment: paty for roscoe fragoso Reviewer: [id number] - Rola Cori Notice Issued Date-Time: 04/27/2020 12:20 Notice Type: IM Discharge Notice Notice Delivered To: Patient Relationship to Patient: Log Cut Off Sawyer Name: Delivery Method: HAND - Hand Delivered Vane Days: Prior Verbal Notification: Recipient Understood Notice: Yes Recipient Signature: Yes Med Rec Note Co-signed by Attending: Coverage Notice Comment: imm served and exlained Last DP export: 04/22/20 2:27 p Patient Name: DENISSE MARRERO Page [phone] at 1233 All edits/amendments must be made on the electronic document DICTATION DATE: 04/27/20 1232 LURER: JUNE 04/27/20 1232 RPT#: [id number] DC DATE: STATUS: ADM IN [facility] [address] [place] [address] END OF REPORT
[2020-04-27 12:34] VITALS: BP 132/54
--- NOTE | 2020-04-27 13:55 | NUR ---
DISCHARGE INSTRUCTIONS GIVEN. PATIENT VERBALIZED UNDERSTANDING. GAVE HOME MEDS TO PATIENT RIGHT BEFORE GOING DOWNSTAIRS TO GET IN VAN. WHEELED DOWN MYSELF.
--- NOTE | 2020-04-28 09:04 | MORECARE ---
CASE MANAGEMENT DISCHARGE SUMMARY PATIENT: DENISSE MARRERO UNIT: [id number] ADM DATE: 04/20/20 AGE: 45 : 79 SEX: M ROOM/BED: D.2203 AUTHOR: JHONATHAN,DOC PHYSICIAN: REFERRING PHYSICIAN: MALCOLM EASLEY MD DATE OF SERVICE: 04/28/20 Discharge Plan Patient Name: DENISSE MARRERO Facility: [facility]:[place] : 1975 Planned Disposition: Assisted Living Anticipated Discharge Date: Discharge Date: 04/27/2020 Expected LOS: Initial Reviewer: [email or web address] Initial Review Date: 04/20/2020 Generated: 04/28/20 10:03 am Comments DCP- Discharge Planning Updated by [email or web address]: Rola Persaud on 04/27/20 11:[address] spoke with Vicky Garcia to let her know of DC, I will send clinical to her. ANDRIA served and explained. I will also let [facility] know and send them dc paperwork. Vicky will send someone to pick him up. Christy will call report to Vicky. DCP- Discharge Planning Updated by [email or web address]: Rola Persaud on 04/22/20 2:[address] Patient Name: DENISSE MARRERO Admission Status: ER Accout number: [id number] Admission Date: 04-20-2020 : 1975 Admission Diagnosis:PNEUMONIA, UNSPECIFIED ORGANISM Attending: MALCOLM EASLEY Current LOS: 2 Anticipated DC Date: Planned Disposition: Assisted Living Primary Insurance: MEDICARE A & B Discharge Planning Comments: CM met with patient to complete initial dc planning assessment. CM educated patient on the CM role and verbal consent given by patient to complete assessment. Patient lives at [address] [place] [address], but is currently staying at [facility] for a transition home (RC) for 2 weeks. Then the patient will return home. CM discussed availability of home health, rehab services, and medical equipment. He does not use any DME, but he is current with [facility]. He stated that I could call Vicky Franz at [phone] if I had any questions. IMM explained and signed, PATY for [facility] signed and placed in chart. 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 Patient denied known discharge needs at this time. CM will continue to follow and will assist as needed with dc plans/needs. Self Defense Instructor: Rola Persaud DCPIA - Discharge Planning Initial Assessment Updated by [email or web address]: Rola Persaud on 04/22/20 3:16 pm * Is the patient Alert and Oriented? Yes * How many steps to enter\exit or inside your home? * PCP [facility] * Pharmacy UNSURE * Preadmission Environment Skilled Nursing * Facility Name [facility] (TRANSIST[facility]) * ADLs Partial Dependent * Partial ADLs (Assistance needed) Medication Management * Equipment None * List name and contact numbers for known caregivers / representatives who currently or will assist patient after discharge: VICKY GARCIA [phone] * Verbal permission to speak to the caregivers and representatives has been obtained from the patient. Yes * Community resources currently utilized Other * Please name any agencies selected above. [facility] * Additional services required to return to the preadmission environment? No * Can the patient safely return to the preadmission environment? Yes * Has this patient been hospitalized within the prior 30 days at any hospital? No Coverage Notice Reviewer: [id number] Darshana Persaud Notice Issued Date-Time: 04/22/2020 13:10 Notice Type: IM Discharge Notice Notice Delivered To: Patient Relationship to Patient: Portable Machine Cutter Name: Delivery Method: HAND - Hand Delivered Vane Days: Prior Verbal Notification: Recipient Understood Notice: Yes Recipient Signature: Yes Med Rec Note Co-signed by Attending: Coverage Notice Comment: imm served and explained Reviewer: [email or web address] Persaud Notice Issued Date-Time: 04/22/2020 13:10 Notice Type: Patient Choice Letter Notice Delivered To: Patient Relationship to Patient: Portable Machine Cutter Name: Delivery Method: HAND - Hand Delivered Vane Days: Prior Verbal Notification: Recipient Understood Notice: Yes Recipient Signature: Yes Med Rec Note Co-signed by Attending: Coverage Notice Comment: paty for [facility] Reviewer: [id number] Darshana Persaud Notice Issued Date-Time: 04/27/2020 12:20 Notice Type: IM Discharge Notice Notice Delivered To: Patient Relationship to Patient: Portable Machine Cutter Name: Delivery Method: HAND - Hand Delivered Vane Days: Prior Verbal Notification: Recipient Understood Notice: Yes Recipient Signature: Yes Med Rec Note Co-signed by Attending: Coverage Notice Comment: imm served and exlained Last DP export: 04/27/20 11:33 am Patient Name: DENISSE MARRERO Page [id number] at 0904 All edits/amendments must be made on the electronic document DICTATION DATE: 04/28/20902 REED POLISHER: JUNE 04/28/20902 RPT#: [id number] DC DATE:04/27/20 STATUS: DIS IN [facility] [address] [place] [address] END OF REPORT
== END 2020-04-27 13:10 | disposition home health service (06) | DRG 193 ==
LOC: D.ER 09:10 → D.MS 11:47
PROVIDERS: Family Medicine; ADMIT Family Medicine; ATTEND Family Medicine
DX: J18.9 Pneumonia, unspecified organism (principal); J96.01 Acute respiratory failure with hypoxia; I50.43 Acute on chronic combined systolic (congestive) and diastolic (congestive) heart failure; Z68.41 Body mass index [BMI] 40.0-44.9, adult; E87.1 Hypo-osmolality and hyponatremia; J81.1 Chronic pulmonary edema; F20.9 Schizophrenia, unspecified; G40.909 Epilepsy, unspecified, not intractable, without status epilepticus; F17.200 Nicotine dependence, unspecified, uncomplicated; E66.01 Morbid (severe) obesity due to excess calories; E11.621 Type 2 diabetes mellitus with foot ulcer; E83.42 Hypomagnesemia; F45.8 Other somatoform disorders; I11.0 Hypertensive heart disease with heart failure

== ENCOUNTER → 2020-08-07 09:20 | Outpatient (CLI) | payer MEDICARE, OTHER ==
[2020-04-21 10:14] VITALS: BMI 38.5
--- NOTE | ~2020-08-07 | EC ---
PATIENT:DENISSE MARRERO DATE OF SERVICE: 08/07/20 SEX: M MEDICAL RECORD: [id number] DATE OF : [birth year] LOCATION:[facility] AGE OF PATIENT: 45 ADMISSION DATE: 08/07/20 REFERRING PHYSICIAN: INTERPRETING PHYSICIAN: CATINA ROGER MD ECHOCARDIOGRAM REPORT ECHO CHARGES 4 ECHO COMPLETE Date: 08/07/20 CLINICAL DIAGNOSIS: AFIB/HEART MURMUR ECHOCARDIOGRAPHIC MEASUREMENTS (adult normal given) AC root (d.<3.7cm) 4.6 cm LV Septum d (<1.2 cm> 1.8 cm Valve Excursion 1.5 cm LV Septum (systole) 2.7 cm Left Atria (s.<4.0cm> 5.7 cm LVPW d(<1.2cm) 2.0 cm RV (d.<2.3cm) 4.5 cm LVPW (sytole) 2.5 cm LV diastole(<5.6CM) 7.4 cm MV E-F(>70mm/sec) cm LV systole 4.1 cm LVOT Diameter 1.8 cm MV exc.(>10mm) 1.7 cm Est.ejection fraction (50-75%) % DOPPLER: LVIT cm/sec A 85.0 cm/sec E 58.0 cm/sec LA cm/sec RVSP 29 mmHg LVOT 170 cm/sec AOP1/2T 521 m/s Asc. Ao 228 cm/sec RVOT 86 cm/sec RA cm/sec PA 117 cm/sec AV Gradient Peak 20.81mmHg AV Mean 11.93mmHg AV Area 2.0 cm MV Gradient Peak 9.25 mmHg MV Mean 4.50 mmHg MV Area cm COMMENTS: Nursing Home Physician: 2 MI BEAN Power Plant Engineer: 3 Dr. Chan TAPE# PACS Pericardial Effusion Y DATE OF SERVICE: Adequate 2D, color-flow imaging, spectral Doppler, and M-Mode LVH is present. LV internal dimensions are normal. Wall motion is normal. EF is greater than or equal to 55%. Aortic valve is calcified with restricted leaflet motion. Peak gradient of 12 mmHg putting this in mild range. Mild AI is present as well. Left atrium is dilated at 5.7 cm. Mitral valve shows no prolapse. Mild MR. Right-sided chambers appear dilated. Mild TR. ECHOCARDIOGRAM REPORT [id number] DENISSE MARRERO TRANSINT:[id number] Voice Confirmation ID: [id number] DOCUMENT ID: [id number] CATINA ROGER MD CC: [id number] DICTATION DATE: 08/08/20 1113 PUBLIC AFFAIRS OFFICER: 08/08/20 1610 DEP CLI 08/07/20 [facility] [address] [place] [id number]
[~2020-08-07 09:20] MED LIST changes: +CARDIZEM CD180 MG PO; +ELIQUIS5 MG PO; +FUROSEMIDE20 MG PO; +HUMALOG MIX 75/10 ML SC; +KEPPRA750 MG PO; +KLOR-CON/EF 2525 MEQ PO; +LANOXIN125 MCG PO; +LIPITOR10 MG PO; +MAG-OX 400 MG400 MG PO; +METOLAZONE5 MG PO; +PACERONE200 MG PO; +PROTONIX20 MG PO
== END | disposition home or self-care (01) ==
LOC: D.HCCARDIO 09:20 → D.HCCECHO 10:00
PROVIDERS: ATTEND Internal Medicine Cardiovascular Disease
DX: I20.9 Angina pectoris, unspecified (principal); I48.91 Unspecified atrial fibrillation

== ENCOUNTER 2020-08-19 15:04 | Emergency (ER) | payer MEDICARE, OTHER ==
[~2020-08-19] VITALS: Ht 182.9 cm; Wt 128.2 kg
[2020-08-19 15:21] VITALS: Ht 182.9 cm; Wt 128.2 kg
[2020-08-19 15:46] LABS: BASOPHILS 0.4 % (0-2); EOSINOPHILS 0 % (0-7); HEMATOCRIT 43.2 % (42.0-54.0); HEMOGLOBIN 14.6 g/dL (13.5-17.5); IMMATURE GRANULOCYTES 0.6 % (0-5); LYMPHOCYTES 28.5 % (15-50); MCH 29.9 pg (26.0-34.0); MCHC 33.8 g/dL (31.0-37.0); MCV 88.3 fL (80.0-100.0); MEAN PLATELET VOLUME 8.8 fL (7.4-10.4); MONOCYTES 9.2 % (2-11); NEUTROPHILS 61.3 % (40-80); PLATELET COUNT 297 10x3/uL (130-400); RBC 4.89 10x6/uL (4.20-6.10); RDW 17.7 % (11.5-14.5); WBC 9.6 10x3/uL (4.8-10.8)
[2020-08-19 15:54] LABS: APTT 34.8 SECONDS (22.8-39.4); CALC OSMOLALITY 271 mosm/kg (275-300); CALCIUM 9.7 mg/dL (8.5-10.1); CARBON DIOXIDE 28.5 mmol/L (21.0-32.0); CHLORIDE - SERUM 96 mmol/L (98-107); GLUCOSE 101 mg/dL (74-106); INR 1.08 (0.85-1.17); SODIUM 133 mmol/L (136-145); UREA NITROGEN 28 mg/dL (7-18); eGFR NON AFRICAN AMERICAN 87 mL/min (90-120)
[2020-08-19 16:11] LABS: ALBUMIN 3.7 g/dL (3.4-5.0); ALKALINE PHOSPHATASE 40 U/L (30-120); ALT (SGPT) 29 U/L (10-68); BILIRUBIN - TOTAL 0.34 mg/dL (0.2-1.3); CKMB 2.5 U/L (0.0-3.6); CREATINE KINASE 77 UL (21-232); PRO BNP 1670 pg/mL (0-125); PROTEIN - SERUM 7.6 g/dL (6.4-8.2); TROPONIN-I 0.047 ng/mL (0.000-0.060)
[2020-08-19] MEDS ORDERED: PROZAC20 MG PO (20:36)
[2020-08-19] MEDS ORDERED: LISINOPRIL20 MG PO (20:38)
[2020-08-19] MEDS ORDERED: PRAVACHOL40 MG PO (20:39)
[2020-08-19] MEDS ORDERED: GLUCOPHAGE1000 MG PO (20:39)
[2020-08-19] MEDS ORDERED: PROAIR HFA8.5 G1 INH (20:40)
[2020-08-19] MEDS ORDERED: TIMOPTIC 0.5 % O5 ML EACH EYE (20:40)
[2020-08-19] MEDS ORDERED: NOVOLIN 70/30 110 ML SC (20:44)
[2020-08-19 21:12] VITALS: BP 167/34
== END 2020-08-19 21:12 | disposition home or self-care (01) ==
LOC: D.ER 15:04
PROVIDERS: Family Medicine
DX: I11.0 Hypertensive heart disease with heart failure (principal); I50.9 Heart failure, unspecified; R07.89 Other chest pain; R06.09 Other forms of dyspnea; R79.89 Other specified abnormal findings of blood chemistry; R06.02 Shortness of breath; E11.9 Type 2 diabetes mellitus without complications; Z79.4 Long term (current) use of insulin; J81.1 Chronic pulmonary edema

== ENCOUNTER 2020-08-26 07:21 | Day surgery (SDC) | payer MEDICARE, OTHER ==
[~2020-08-26] VITALS: Ht 182.9 cm; Wt 127.6 kg
--- NOTE | ~2020-08-26 | HEMODYNAMI ---
PATIENT:DENISSE MARRERO MEDICAL RECORD: [id number] : 79 LOCATION:[facility] ADMISSION DATE: 08/26/20 Generatedon:08/26/202010:02 Patient name: DENISSE MARRERO Patient #: [id number] SSN: [id number] : 1975 Date of study: 08/26/2020 Page: Of Hemodynamic Procedure Report Patient Data Patient Demographics Procedure consent was obtained First Name: DENISSE Gender: Male Last Name: JANES : 1975 Patient #: [id number] Age: 45 year(s) Race: SSN: [id number] Additional ID: [id number] Contact details Address: [address] [place] [address] State: [place] City: [facility] Zip code: [address] Past Medical History Allergies Allergen Reaction Date Comments Reported Penicillins 08/26/2020 Admission Admission Data Admission Date: 08/26/2020 Admission Time: 7:21 Arrival Date: 08/26/2020 Arrival Time: 0:00 Admit Source: Other Insurance Payor: Medicare [facility] #: [id number] Height (in.): 72 BSA: 2.44 (m2) Height (cm.): 182.88 BMI: 37.16 (kg/m2) Weight (lbs.): 274 Weight (kg.): 124.28 Lab Results Lab Result Date: 08/26/2020 Lab Result Time: 0:00 Biochemistry Name Units Result Min Max BUN mg/dl 46 --(----)-* 7 18 Creatinine mg/dl 1.1 --(--*-)-- 0.6 1.3 eGFR ml/min 78 *-(----)-- 90 120 NONAFRICAN CBC Name Units Result Min Max Hematocrit % 40.9 -*(----)-- 42 54 Hemoglobin g/dl 14.2 --(*---)-- 13.5 17.5 Procedure Procedure Types Cath Procedure Diagnostic Procedure [facility] w/Coronaries Sedation Charges Moderate Sedation up to 30 minutes PCI Procedure Coronary Stent Coronary Stent Initial Hemochron ACT Test Procedure Description Procedure Date Procedure Date: 08/26/2020 Procedure Start Time: 9:30 Procedure End Time: 10:00 Procedure Staff Name Function German Grant MD Performing Physician John Moss RN Nurse Manju Mast RT Monitor Miracle Isbell RT Scrub Ana Guerra RT Coagulating Drying Supervisor Procedure Data Cath Procedure Fluoroscopy Diagnostic fluoroscopy Total fluoroscopy Time: 4.7 time: 4.7 min min Diagnostic fluoroscopy Total fluoroscopy dose: dose: 1163 mGy 1163 mGy Contrast Material Contrast Material Type Amount (ml) Isovue 300 93 Entry Location Entry Primary Successful Side Size Upsize Upsize Entry Closure Succes sful Closure Location (Fr) 1 (Fr) 2 (Fr) Remarks Device Remarks Femoral Right 5 Fr 6 Fr Exoseal artery Short Estimated blood loss: 10 ml Diagnostic catheters Device Type Used For End Catheter Placement MULTIPACK JL 4.0 5Fr Left Coronary catheter Angiography DIAGNOSTIC JL 5 5Fr Left Coronary catheter ([id number]) Angiography MULTIPACK 3DRC 5Fr Right Coronary catheter Angiography MULTIPACK Pigtail 5 Fr LV Angiography catheter Procedure Complications No complications Procedure Medications Medication Administration Route Dosage 0.9% NaCl I.V. 100 ml/hr Oxygen etCO2 Nasal cannula 2 l/min Heparin Flush Bag added to field 2 bags (1000units/500ml NS) Lidocaine 2% added to field 20 Radial Cocktail added to field 1 syringe (Verapamil 2mg/Nitro 400mcg/Heparin 1500units) Versed I.V. 2 mg Fentanyl I.V. 100 mcg Versed I.V. 1 mg Heparin Bolus I.V. 5000 units Integrilin (Bolus I.V. 11.3 ml 2mg/ml) Integrilin (Bolus wasted 8.7 ml 2mg/ml) Plavix P.O. 600 mg Hemodynamics Rest BSA: 2.44 (m2) HGB: 14.2 (g/dl) O2 Consumption: Estimated: 294.5 (ml/min) O2 Con sumption indexed: Estimated:120.7 (ml/min/m) Heart Rate: 68 (bpm) Pressure Samples Time Site Value (mmHg) Purpose Heart Use Rate(bpm) 9:44 LV 136/22,31 Snapshot 75 Gradients Valve Time Site Site Mean SEP/DFP Peak To Heart Use 1 2 (mmHg) (sec/min) Peak Rate (mmHg) (bpm) Aortic 9:44 LV AO 79 Snapshots Pre Cath Intra NCS Post Cath Vital Signs Time Heart Resp SPO2 etCO2 NIBP Rhythm Pain Sedation Rate (ipm) (%) (mmHg) (mmHg) Status Level (bpm) 9:09:42 79 15 100 0 130/56(86) NSR 0 (11) 10(A) , No pain 9:14:00 78 19 97 0 125/53(80) NSR 0 (11) 10(A) , No pain 9:18:16 77 18 96 0 124/51(94) NSR 0 (11) 10(A) , No pain 9:22:32 76 17 94 9.7 122/51(94) NSR 0 (11) 10(A) , No pain 9:26:50 77 19 96 47.3 122/52(90) NSR 0 (11) 10(A) , No pain 9:31:08 76 18 95 0.7 122/51(80) NSR 0 (11) 10(A) , No pain 9:35:24 77 10 94 12.7 120/53(84) NSR 0 (11) 9(A) , No pain 9:39:36 77 14 96 0 122/54(87) NSR 0 (11) 9(A) , No pain 9:43:54 78 12 96 15 121/49(95) NSR 0 (11) 9(A) , No pain 9:48:10 77 12 96 15.7 112/50(86) NSR 0 (11) 9(A) , No pain 9:52:22 77 10 96 21 114/51(90) NSR 0 (11) 9(A) , No pain 9:56:38 75 11 96 13.5 125/47(89) NSR 0 (11) 9(A) , No pain Medications Time Medication Route Dose Verified Delivered Reason Note s Effectiveness by by 9:08:46 0.9% NaCl I.V. 100 John John Per physician ml/hr Isa Moss RN RN 9:08:55 Oxygen etCO2 2 l/min John John for low 02 sats Nasal Isa Moss cannula RN RN 9:09:07 Heparin Flush added 2 bags John John used for Bag to Lorigan Lorigan procedure (1000units/500ml field RN RN NS) 9:09:19 Lidocaine 2% added 20ml John John for local to vial Lorigan Lorigan anesthetic field RN RN 9:09:30 Radial Cocktail added 1 John John used for (Verapamil to syringe Lorigan Lorigan procedure 2mg/Nitro field RN RN 400mcg/Heparin 1500units) 9:26:32 Versed I.V. 2 mg John John for sedation Isa Moss RN RN 9:26:42 Fentanyl I.V. 100 mcg John John for sedation Isa Moss RN RN 9:33:04 Versed I.V. 1 mg John John for sedation Isa Moss RN RN 9:48:33 Integrilin I.V. 11.3 ml John John for (Bolus 2mg/ml) Lordelphine Moss antiplatelet RN RN therapy 9:48:57 Heparin Bolus I.V. 5000 John John for units Lordelphine Moss anticoagulation RN RN 9:57:08 Integrilin wasted 8.7ml John John to sharp's (Bolus 2mg/ml) Isa Moss RN RN 9:57:20 Plavix P.O. 600 mg John John for Isa Moss antiplatelet RN RN therapy Procedure Log Time Note 8:32:21 Arrival Date: 08/26/2020 12:00:00 AM 8:32:41 Admit Source: Other 8:32:45 Insurance Payor : Medicare 8:33:00 Patient Height : 72 inches 8:33:04 Patient Weight : 274 lbs 8:50:28 Miracle MOSQUEDA(R) (CV) sent for patient. Start room use. 8:55:00 Procedure Status Elective Heart Cath (OP). 8:55:08 Time tracking: Regular hours (M-F 7:00 - 5:00) 8:55:10 Plan of Care:Hemodynamics will remain stable., Cardiac rhythm will remain stable., Comfort level will be maintained., Respiratory function will remain adequate., Patient/ family verbilizes understanding of procedure., Procedure tolerated without complication., Recovers from procedure without complications.. 8:55:20 H&P Date Dictated: 07/28/2020 Within 30 days and on chart., H&P Addendum completed by physician on day of procedure. (MUST COMPLETE FOR ALL OUTPATIENTS). 8:55:31 Patient allergic to Penicillins 9:02:28 Is patient on blood thinner?Yes 9:02:32 ACC The patient was administered the following blood thiners within the last 24 hours: Eliquis 9:02:45 LAST DOSE OF ELIQUIS ON MONDAY 9:02:54 Patient received from Pre/Post Procedure Room to CCL 2 Alert and oriented. Tansferred to table in Supine position. 9:02:57 Signed procedure consent form obtained from patient. 9:02:58 Warm blankets applied, and oswaldo hugger turned on for patient comfort. 9:02:59 Correct patient and procedure confirmed by team. 9:03:02 ECG and BP/O2 sat monitors applied to patient. 9:03:02 Pre-procedure instructions explained to patient. 9:03:02 Pre-op teaching completed and patient verbalized understanding. 9:03:04 Family in patients room. 9:03:06 Patient NPO since Midnight. 9:03:08 Is the patient allergic to Iodine/contrast media? No. 9:03:28 Patient diabetic? Yes. 9:03:29 If diabetic: On Metformin? No 9:03:31 Previous problem with sedation/anesthesia? No ? 9:03:32 Snore? Yes 9:03:34 Sleep apnea? No 9:03:38 Deviated septum? No 9:03:38 Opens mouth fully? Yes 9:03:39 Sticks out tongue? Yes 9:03:41 Airway obstruction? Yes COPD 9:03:44 Dentures? No ? 9:04:00 Modified Felton's test Ulnar < 7 seconds 9:04:02 Pre procedure: right dorsailis pedis pulse 1+ Palpable, but thready & weak; easily obliterated 9:04:13 Patient pain scale 0/10 ?. 9:04:35 IV patent on arrival in left hand with 0.9% NaCl at O. 9:04:40 Right Radial & Right Groin area was prepped with chlora-prep and draped in sterile fashion 9:04:41 Alarms reviewed by R. N. 9:04:41 Sharps counted by scrub and verified by R.N. 9:08:31 Vital chart was started 9:08:46 0.9% NaCl 100 ml/hr I.V. was administered by John Moss RN; Per physician; Verbal order read back and verified. 9:08:55 Oxygen 2 l/min etCO2 Nasal cannula was administered by John Moss RN; for low 02 sats; Verbal order read back and verified. 9:09:07 Heparin Flush Bag (1000units/500ml NS) 2 bags added to field was administered by John Moss RN; used for procedure; Verbal order read back and verified. 9::19 Lidocaine 2% 20ml vial added to field was administered by John Moss RN; for local anesthetic; Verbal order read back and verified. 9:09:30 Radial Cocktail (Verapamil 2mg/Nitro 400mcg/Heparin 1500units) 1 syringe added to field was administered by John Moss RN; used for procedure; Verbal order read back and verified. 9::53 Lab Result : BUN 46 mg/dl 9:: Lab Result : Creatinine 1.1 mg/dl 9::53 Lab Result : eGFR NONAFRICAN 78 ml/min 9::53 Lab Result : Hemoglobin 14.2 g/dl ::53 Lab Result : Hematocrit 40.9 % 9::57 Lab results completed and on chart. 9:10:29 Baseline sample Acquired. 9:10:34 Rhythm: sinus rhythm 9:10:36 Full Disclosure recording started 9:10:39 Use device set Radial Dx or PCI 9:10:41 ACIST Syringe (52224) opened to sterile field. 9:10:41 Bag Decanter () opened to sterile field. 9:10:42 ACIST Hand Control (18134) opened to sterile field. 9:10:42 ACIST Manifold (26524) opened to sterile field. 9:10:42 Tegaderm 4 x 4 (1626W) opened to sterile field. 9:10:43 Medline Cath Pack ([id number]) opened to sterile field. 9:10:44 MBrace Wrist Support ([id number]) opened to sterile field. 9:10:46 EMERALD Guide Wire (464-225) opened to sterile field. 9:10:46 SHEATH 6FR RAIN (2062213) opened to sterile field. 9:13:03 Stress Test: yes; abnormal INFERIOR WALL AND APICAL 9:17:19 Zero performed for pressure channel P1 9:21:56 Physician arrived 9:21:57 --------ALL STOP TIME OUT------ 9:21:58 Final Timeout: patient, procedure, and site verified with staff and physician. All members of the team are in agreement. 9:22:02 Right Radial & Right Groin site verified by team. 9:22:07 Fire Safety Assessment: A--An alcohol-based skin anteseptic being used preoperatively., C--Open oxygen or nitrous oxide is being used., D--An ESU, laser, or fiber-optic light is being used. 9:22:12 Physical assessment completed. ASA score P 2 - A patient with mild systemic disease as per German Grant MD. 9:22:19 2) 60-89 Mildly reduced kidney function, and other findings (as for stage 1) point to kidney disease. 9:22:27 Maximum allowable contrast dose (3.7 X eGFR X 0.75)216 ml. 9:22:34 Sedation plan: IV Moderate Sedation Medication:Versed, Fentanyl 9:23:18 Risk of Mortality: 0.1 9:23:22 Risk of blood transfusion: 0.1 9:23:26 Risk of SRINIVASAN: 0.2 9:26:32 Versed 2 mg I.V. was administered by John Moss RN; for sedation; Verbal order read back and verified. 9:26:42 Fentanyl 100 mcg I.V. was administered by John Moss RN; for sedation; Verbal order read back and verified. 9:28:38 Procedure started. 9:30:55 Local anesthetic to right radial artery with Lidocaine 2% by German Grant MD.INITIAL ACCESS ONLY 9:33:04 Versed 1 mg I.V. was administered by John Moss RN; for sedation; Verbal order read back and verified. 9:35:46 UNABLE TO OBTAIN RADIAL ACCESS, WILL GO TO RIGHT GROIN. 9:35:56 SHEATH 5FR [place] (TSU641) opened to sterile field. 9:36:10 Local anesthetic to right femoral artery with Lidocaine 2% by German Grant MD.ADDITIONAL ACCESS 9:36:28 A 5 Fr sheath was inserted into the Right Femoral artery 9:37:14 Use device set Multipack Set 9:37:23 A MULTIPACK JL 4.0 5Fr catheter was advanced over the wire and used for Left Coronary Angiography. 9:37:45 LCA angiography performed. 9:37:55 DIAGNOSTIC Multipack 5Fr catheter set (DP4802) opened to sterile field. 9:38:01 Catheter removed. 9:38:24 A DIAGNOSTIC JL 5 5Fr catheter ([id number]) was advanced over the wire and used for Left Coronary Angiography. 9:40:04 LCA angiography performed. 9:40:11 Injector settings: Ml/sec: 3, Volume: 6, 9:40:44 Catheter removed. 9:40:55 A MULTIPACK 3DRC 5Fr catheter was advanced over the wire and used for Right Coronary Angiography. 9:41:28 RCA angiography performed. 9:41:32 Injector settings: Ml/sec: 3, Volume: 6, 9:42:01 Catheter removed. 9:44:13 A MULTIPACK Pigtail 5 Fr catheter was advanced over the wire and used for LV Angiography. 9:44:19 Injector settings: Ml/sec: 5, Volume: 15, 9:44:51 LV gram done using CASILLAS 9:45:03 EF : 55 % 9:45:07 LV hemodynamics recorded. 9:45:29 Catheter removed. 9:45:31 Proceeding to intervention. 9:46:01 WHISPER 300cm guide wire ([id number]) opened to sterile field. 9:46:02 INFLATOR Merit BasixCompak (ML0228) opened to sterile field. 9:46:04 SHEATH 6FR [place] (DIC865) opened to sterile field. 9:46:26 ACC Pre-intervention ENMANUEL Flow is 3. 9:46:38 Sheath upsized to a 6 Fr Short. 9:47:15 Pre PCI Site: [place] pRCA has 80% stenosis. 9:47:42 GUIDE 6FR HS I catheter (LA6HSI) opened to sterile field. 9:47:53 6 Fr HSI guide catheter was inserted over the wire 9:48:01 [id number] wire advanced. 9:48:33 Integrilin (Bolus 2mg/ml) 11.3 ml I.V. was administered by John Moss RN; for antiplatelet therapy; Verbal order read back and verified. 9:48:57 Heparin Bolus 5000 units I.V. was administered by John Moss RN; for anticoagulation; Verbal order read back and verified. 9:49:27 Wire advanced across lesion. 9:53:00 Place stent Inflation Number: 1 A INTEGRITY RX 4.0 x 26 stent ([id number]) was prepped and advanced across the Prox RCA . The stent was deployed at 16 ROBSON for 0:15 (min:sec) . 9:53:08 Stent catheter was removed intact over wire. 9:53:10 Wire removed. 9:53:11 Guide catheter removed. 9:53:22 Post PCI Site: [place] pRCA has 0% stenosis. 9:53:27 ACC Post-intervention ENMANUEL Flow is 3. 9:53:39 EXOSEAL 6Fr (EX600) opened to sterile field. 9:54:00 Sheath removed intact; hemostasis achieved with Exoseal to the Right Femoral artery. 9:54:03 Procedure ended.(Physican Out) 9:54:18 Contrast amount:Isovue 300 93ml. 9:54:28 Fluoroscopy time 04.70 minutes. 9:54:37 Fluoroscopy dose: 1163 mGy 9:54:37 Flurop Dose total: 1163 9:54:58 Dose Area Product 42033 mGy/cm. 9:55:01 Maximum allowable dose exceeded? No. 9:55:03 Sharps counted by scrub and verified by R.N. 9:55:10 Post right femoral artery:stable 9:55:16 Post-op/insertion site Right Femoral artery dressed using a 4 x 4 and Tegaderm. 9:55:38 Post-procedure physical assessment completed. ASA score P 2 - A patient with mild systemic disease as per German Grant MD. 9:55:43 Post procedure rhythm: unchanged. 9:55:46 Estimated blood loss: 10 ml 9:55:48 Post procedure instruction explained to patient.Patient verbalizes understanding. 9:55:48 Patient needs reinforcement of post procedure teaching. 9:57:08 Integrilin (Bolus 2mg/ml) 8.7ml wasted was administered by John Moss RN; to sharp's; Verbal order read back and verified. 9:57:20 Plavix 600 mg P.O. was administered by John Moss RN; for antiplatelet therapy; Verbal order read back and verified. 9:57:46 Procedure type changed to Cath procedure, Diagnostic procedure, C, [facility] w/Coronaries, Sedation Charges, Moderate Sedation up to 30 minutes, PCI procedure, Coronary Stent, Coronary Stent Initial, Hemochron ACT Test 9:57:48 Procedure and supply charges have been captured, reviewed, submitted and are correct. 9:58:07 ACT drawn and resulted at 206 seconds. (normal therapeutic range 180-240 seconds). 9:59:31 Procedure Complication : No complications 9:59:35 Vital chart was stopped 9:59:38 [facility] Findings: MVD- PCI performed (see procedure note) 9:59:40 See physician's report for complete and final results. 9:59:43 Report given to Pre/Post Procedure Room. 9:59:53 Patient transfered to Pre/Post Procedure Room with Stretcher. 10:00:10 Procedure ended. 10:00:10 Full Disclosure recording stopped 10:00:23 ACC-PCI Only Patient was given prescriptions, or instructed by German Grant MD to start/continue the following medications upon discharge: Plavix 10:00:25 End room use (Document Last) Intervention Summary Intervention Notes Time ActionType Lesion and Equipment Action# Pressure Duration Attributes Used 9:53:[address] Place stent Prox RCA INTEGRITY RX 1 16 00:15 4.0 x 26 stent ([id number]) Device Usage Item Name Manufacture Quantity Catalog Hospital Part Current Minim al Lot# / Number Charge Number Stock Stock Serial# Code ACIST Acist 1 87179 375255 015893 542783 20 Syringe Medical (78772) Systems Inc Bag Decanter Microtek 1 2001S 968499 75746 672142 5 (2001S) Medical Inc. ACIST Hand Acist 1 14429 539131 140638 099932 5 Control Medical (37630) Systems Inc ACIST Acist 1 61240 167967 421533 700044 5 Manifold Medical (78382) Systems Inc Tegaderm 4 x 3M 1 1626W 148818 067877 358049 5 4 (1626W) Medline Cath Medline 1 [id number] 823802 27632 123146 5 Pack ([id number]) MBrace Wrist Advanced 1 140-0250-00 391532 49451 394621 5 Support Vascular (527017900) Dynamics EMERALD Cardinal 1 502-455 144236 999818 163688 5 Guide Wire [facility] (046-085) SHEATH 6FR Cardinal 1 1685351 579867 0501862 971915 5 [facility] (2418259) SHEATH 5FR Terumo 1 QIY290 986853 121429 132635 5 [place] (ZTF268) MULTIPACK JL Cardinal 1 543820 5 4.0 5Fr Health catheter DIAGNOSTIC Cardinal 1 [id number] 406987 114668 986224 5 JL 5 5Fr Health catheter (982466C) DIAGNOSTIC Cardinal 1 QS7441 766702 98306 151706 30 [facility] 5Fr catheter set (IM8364) MULTIPACK Cardinal 1 476727 5 3DRC 5Fr Health catheter MULTIPACK Cardinal 1 402031 5 Pigtail 5 Fr Health catheter WHISPER Lara 1 [id number] 949339 876062 106038 5 300cm guide Vascular wire (8227920MC) INFLATOR [facility] 1 TG7557 987636 570416 466611 15 [facility] BasixCompak (RB1661) SHEATH 6FR Terumo 1 BUG622 489401 960215 665362 40 [place] (XPR691) GUIDE 6FR HS Medtronic 1 LA6HSI 997046 66583 152322 1 I catheter (LA6HSI) INTEGRITY RX Medtronic 1 [id number] 762437 501667 077000 5 4.0 x 26 stent ([id number]) EXOSEAL 6Fr Cardinal 1 EX600 284438 198871 115499 10 (EX600) Health Signature Audit Mason Stage Time Signature Unsigned Intra-Procedure 08/26/2020 Miracle 10:01:27 AM Akilah MOSQUEDA(R) (CV) Intra-Procedure 08/26/2020 John 10:01:58 AM Isa HUDSON Intra-Procedure 08/26/2020 German Farrell 10:02:39 AM Jude BHATTI Signatures Performing Physician : Signature : German Grant MD Date : Time : Nurse : John Moss Signature : RN Date : Time : Monitor : Manju Pro Signature : RT Date : Time : [address] [place] [address]
[~2020-08-26 07:21] MED LIST changes: +NOVOLIN 70/30 110 ML SC; +PROAIR HFA8.5 G1 INH; +TIMOPTIC 0.5 % O5 ML EACH EYE
[2020-08-26] MEDS ORDERED: INVEGA SUS117 MG/0.7 IM (07:58)
[2020-08-26] MEDS ORDERED: ELIQUIS5 MG PO (08:01)
[2020-08-26] MEDS ORDERED: EPITOL200 MG PO (08:05)
[2020-08-26] MEDS ORDERED: ALDACTONE25 MG PO (08:06)
[2020-08-26] MEDS ORDERED: MAG-OXIDE400 MG PO (08:07)
[2020-08-26] MEDS ORDERED: MATZIM LA180 MG PO (08:08)
[2020-08-26] MEDS ORDERED: LANOXIN125 MCG PO (08:09)
[2020-08-26] MEDS ORDERED: KEPPRA750 MG PO (08:09)
[2020-08-26] MEDS ORDERED: LIPITOR10 MG PO (08:10)
[2020-08-26] MEDS ORDERED: METOLAZONE5 MG PO (08:11)
[2020-08-26] MEDS ORDERED: PROTONIX20 MG PO (08:12)
[2020-08-26] MEDS ORDERED: METOPROLOL TART50 MG PO (08:13)
[2020-08-26] MEDS ORDERED: FUROSEMIDE40 MG PO (08:13)
[2020-08-26 08:21] VITALS: BP 115/47; Ht 182.9 cm; Wt 127.6 kg
[2020-08-26] MEDS ORDERED: KLOR-CON/EF 2525 MEQ PO (08:35)
[2020-08-26] MEDS ORDERED: ENTRESTO 24 MG1 EACH PO (08:36)
[2020-08-26 08:39] LABS: BASOPHILS 0.2 % (0-2); EOSINOPHILS 0.1 % (0-7); HEMATOCRIT 40.9 % (42.0-54.0); HEMOGLOBIN 14.2 g/dL (13.5-17.5); IMMATURE GRANULOCYTES 0.6 % (0-5); LYMPHOCYTES 22.9 % (15-50); MCH 30.3 pg (26.0-34.0); MCHC 34.7 g/dL (31.0-37.0); MCV 87.4 fL (80.0-100.0); MONOCYTES 10.2 % (2-11); PLATELET COUNT 319 10x3/uL (130-400); RBC 4.68 10x6/uL (4.20-6.10); RDW 17.6 % (11.5-14.5); WBC 9.7 10x3/uL (4.8-10.8)
[2020-08-26 08:54] LABS: ALT (SGPT) 26 U/L (10-68); CALC OSMOLALITY 274 mosm/kg (275-300); CALCIUM 9.5 mg/dL (8.5-10.1); CARBON DIOXIDE 30.3 mmol/L (21.0-32.0); CHLORIDE - SERUM 92 mmol/L (98-107); CHOL - HDL RATIO 4.4 ratio (2.3-4.9); CHOLESTEROL, TOTAL 195 mg/dL (0-200); CREATININE - SERUM 1.1 mg/dL (0.6-1.3); HDL CHOLESTEROL 44 mg/dL (32-96); LDL CHOLESTEROL 77 mg/dL (0-100); LDL-HDL RATIO 1.8 ratio (1.5-3.5); POTASSIUM - SERUM 3.7 mmol/L (3.5-5.1); SODIUM 129 mmol/L (136-145); TRIGLYCERIDE 372 mg/dL (30-200); UREA NITROGEN 46 mg/dL (7-18); eGFR NON AFRICAN AMERICAN 78 mL/min (90-120)
[2020-08-26 08:55] LABS: GLUCOSE 172 mg/dL (74-106)
--- NOTE | 2020-08-26 10:15 | NUR ---
PT REC'D TO ROOM 3 VIA STRETCHER FROM STORE [facility]. MONITORS ESTAB, NO FAMILY AT BS. SEE MID LEVEL NET DEVELOPER. ALARMS ON AND C/L IN REACH.
--- NOTE | 2020-08-26 10:25 | NUR ---
VICKY GARCIA, PT NURSE AT [facility], UPDATED AND DISCHARGE INSTRUCTIONS REVIEWED. SHE DID NOT WANT TO SPEAK WITH DR ROGER AT THIS TIME.
[2020-08-26] MEDS ORDERED: BAYER CHEWABLE81 MG PO (10:29)
[2020-08-26] MEDS ORDERED: PLAVIX75 MG PO (10:29)
--- NOTE | 2020-08-26 10:30 | NUR ---
R GROIN SITE SOFT, C/D/I, NO S/S BLEEDING OR HEMATOMA. R LEG/FOOT WARM WITH PALP PULSES. PT C/O HEART BURN, TOLERATED SIPS OF SPRITE, WILL CONT CLOSE MONITORING. C/L IN REACH.
--- NOTE | 2020-08-26 11:00 | NUR ---
R GROIN SITE SOFT, NO S/S BLEEDING OR HEMATOMA. R FOOT WARM WITH PALP PULSES. PT RESTING QUIETLY, VSS. ALARMS ON AND C/L IN REACH.
--- NOTE | 2020-08-26 11:15 | NUR ---
NEW [facility] CALLED IN TO [facility] IN PER REQUEST OF PT AND HIS NURSE.
--- NOTE | 2020-08-26 11:45 | NUR ---
R GROIN SITE C/D/I, NO S/S BLEEDING OR SWELLING. R LEG/FOOT WARM WITH PALP PULSES. VSS. PT DENIES PAIN OR NEEDS. ALARMS ON AND C/L IN REACH.
--- NOTE | 2020-08-26 12:15 | NUR ---
PT RESTING QUIETLY, R GROIN SITE SOFT, NO S/S BLEEDING OR HEMATOMA. PULSES EASILY PALP. VSS.
--- NOTE | 2020-08-26 12:45 | NUR ---
R GROIN SITE C/D/I, NO S/S BLEEDING OR HEMATOMA. PULSES PALP, BRISK CAP REFILL. VSS. ALARMS ON AND C/L IN REACH.
--- NOTE | 2020-08-26 12:58 | NUR ---
R GROIN SITE SOFT, NO S/S BLEEDING. HOB GRADUALLY ELEVATED. PT ALERT AND ORIENTED. SANDWICH TRAY AND SPRITE PROVIDED. VSS. C/L IN REACH.
--- NOTE | 2020-08-26 13:14 | NUR ---
R GROIN SITE C/D/I. PULSES PALP. VSS. PT TOLERATED EATING AND DRINKING. PT HAS CALLED THE TRANSPORT BUS TO PLAN FOR D/C AT 1400.
--- NOTE | 2020-08-26 13:30 | NUR ---
PT VOIDED 500ML CLEAR, YELLOW URINE VIA URINAL. VSS. PT DENIES PAIN OR NEEDS.
--- NOTE | 2020-08-26 13:40 | NUR ---
ALL DISCHARGE INSTRUCTIONS REVIEWED WITH PT - INCLUDING MEDS, RESTRICTIONS AND F/U APPT. ALL INSTRUCTIONS WHERE ALSO DISCUSSED WITH HIS NURSE AT DETENTION OVER THE PHONE.
--- NOTE | 2020-08-26 13:46 | NUR ---
R GROIN SITE SOFT, C/D/I. PIV D/C'D INTACT, DSG APPLIED. PT ALLOWED TO GET UP AND GET DRESSED INDEPENDENTLY.
--- NOTE | 2020-08-26 14:05 | NUR ---
PT D/C'D VIA TO [employer] BUS. PT HAS ALL PAPERWORK AND BELONGINGS.
--- NOTE | 2020-08-27 10:47 | OP ---
PATIENT NAME: DENISSE MARRERO MEDICAL RECORD: [id number] :[birth year] LOCATION:D.CAT ADMISSION DATE: SURGEON: CATINA ROGER MD DATE OF OPERATION: 08/26/2020 PROCEDURE: Left heart catheterization, selective coronary angiography, right femoral artery approach. CATHETERS: A 5-Stateless sheath, 5/4 left and right Roselyn, 5/4 pig. The procedure was well tolerated. We proceeded immediately to PTCA stenting of right coronary. The procedure was finished. FINDINGS: Left ventriculography in 30-degree CASILLAS view: Normal wall motion. Normal systolic function. CORONARY ANATOMY: LEFT MAIN: Free of disease. LAD: Free of disease in the diagonal system. CIRCUMFLEX: Large dominant right and this shows about 80% stenosis in its midportion, elongated stenosis, correlating nicely with nuclear study. PLAN: Intervention of right momentarily. DESCRIPTION OF PROCEDURE: A 5-Stateless sheath was exchanged for a 6-Stateless sheath. A hockey stick guide catheter provided excellent guide catheter support followed by 300 cm Whisper wire, which was placed across the tightly occluded right down to this portion of vessel. Stent deployed was a 4.0 x 26 mm nondrug-eluting stent inflated up to 16 atmospheres. Final angiography shows excellent resolution of 80% stenosis. No significant residual. ENMANUEL flow was 3 throughout the procedure. Sheath was closed with ExoSeal device. Plavix was loaded in the lab. NTS:[id number] Voice Confirmation ID: [id number] DOCUMENT ID: [id number] CATINA ROGER MD at 1047 CC: [id number] DICTATION DATE: 08/26/20 1007 CRM CAMPAIGN MANAGER: 08/26/20 1925 [facility] 08/26/20 [facility] [address] [place] [address]
== END 2020-08-26 14:05 | disposition home or self-care (01) ==
LOC: D.CATH 07:21
PROVIDERS: ATTEND Internal Medicine Interventional Cardiology
DX: I48.91 Unspecified atrial fibrillation (principal); I20.9 Angina pectoris, unspecified; R01.1 Cardiac murmur, unspecified; I10 Essential (primary) hypertension; E11.9 Type 2 diabetes mellitus without complications